=== PATIENT | male | born 1965 | race Caucasian/White ===

== ENCOUNTER 2022-08-13 10:13 | Emergency (ER) | payer OTHER ==
[2022-08-13] MEDS ORDERED: Sodium Chloride 0.9% 1,000 ML IV ONE (10:28)
[2022-08-13] MEDS ORDERED: Adenosine 6 MG/2 ML SDV ONE (10:32)
[2022-08-13 10:38] LABS: BASOPHILS PERCENT AUTO 0.2 % (0.0-1.0); EOSINOPHILS PERCENT AUTO 0.4 % (1.0-3.0); HEMATOCRIT 44.2 % (40.0-54.0); HEMOGLOBIN 15.3 g/dL (14.0-18.0); LYMPHOCYTES PERCENT AUTO 21.3 % (20.5-50.1); MEAN CORPUSCULAR HEMOGLOBIN 33.4 pg (27.0-34.0); MEAN CORPUSCULAR HGB CONC 34.6 g/dL (33.0-35.0); MEAN CORPUSCULAR VOLUME 96.5 fL (80-100); MONOCYTES PERCENT AUTO 7.6 % (2-8); NEUTROPHILS PERCENT AUTO 70.5 % (42.2-75.2); PLATELET COUNT,PLT 194 10^3/uL (150-450); RED BLOOD CELL COUNT 4.58 10^6/uL (4.6-6.2); WHITE BLOOD CELL COUNT,WBC 10.9 10^3/uL (5.0-10.0)
[2022-08-13] MEDS ORDERED: fentaNYL 100 MCG/2 ML SDV ONE (10:38)
[2022-08-13] MEDS ORDERED: Aspirin 81 MG Tab.Chew PO ONE (10:56)
[2022-08-13 11:00] LABS: INR 1.1 (0.9-1.2); PROTHROMBIN TIME 10.9 SEC (9.0-12.0); PTT,PARTIAL THROMBOPLSTIN TIME 24.2 SEC (22.0-34.0)
[2022-08-13 11:01] LABS: B-TYPE NATRIURETIC PEPTIDE,BNP 966 pg/ml (0-100)
[2022-08-13 11:08] LABS: LACTIC ACID 4.8 mmol/L (0.4-2.0)
[2022-08-13] MEDS ORDERED: Sodium Chloride 0.9% 10 ML Syringe FLUSH STA (11:08)
[2022-08-13 11:09] LABS: ALANINE AMINOTRANSFERASE,ALT 109 U/L (16-63); ALBUMIN 3.7 g/dL (3.4-5.0); ALKALINE PHOSPHATASE 88 U/L (46-116); ANION GAP 19.2 mEq/L (7-13); ASPARTATE AMNIOTRANSFERASE,AST 159 U/L (15-37); BILIRUBIN TOTAL 1.9 mg/dL (0.2-1.0); BLOOD UREA NITROGEN,BUN 23 mg/dL (7-18); BUN/CREATININE RATIO 9.7 (No establ ref range); CALCIUM 9.1 mg/dL (8.5-10.1); CARBON DIOXIDE,CO2 21 mmol/L (21-32); CHLORIDE,CL 98 mmol/L (98-107); CREATININE 2.37 mg/dL (0.70-1.30); EST CRCL DRUG DOSING (CG) 35.22 mL/min; GLUCOSE RANDOM 245 mg/dL (70-99); MAGNESIUM 1.7 mg/dL (1.8-2.4); POTASSIUM,K 4.2 mmol/L (3.5-5.1); PROTEIN TOTAL,TP 7.4 g/dL (6.4-8.2); SODIUM,NA 134 mmol/L (136-145); TSH ULTRASENSITIVE 6.13 uIU/mL (0.36-3.74)
[2022-08-13 11:11] LABS: ESTIMATED GFR 32 mL/min (>=60); ETHANOL BLOOD MEDICAL < 3 mg/dL (0)
[2022-08-13] MEDS ORDERED: Heparin Sodium 5,000 Units/ML Vial IVPUSH ONE (11:11)
[2022-08-13] MEDS ORDERED: Heparin Sodium/0.45% NaCl 25,000 UNITS/500 ML BAG IV SCH (11:15)
[2022-08-13] MEDS ORDERED: Amiodarone 150 MG/3 ML SDV IVPUSH ONE (11:28)
[2022-08-13] MEDS ORDERED: Adenosine 6 MG/2 ML SDV IVPUSH ONE (11:28)
[2022-08-13] MEDS ORDERED: fentaNYL 100 MCG/2 ML SDV IVPUSH ONE (11:29)
== END 2022-08-13 11:39 ==
LOC: DL.ED 10:13
DX: I21.4 Non-ST elevation (NSTEMI) myocardial infarction (principal); I47.20 Ventricular tachycardia, unspecified; J81.1 Chronic pulmonary edema; N17.9 Acute kidney failure, unspecified; R73.9 Hyperglycemia, unspecified; E87.1 Hypo-osmolality and hyponatremia; E83.42 Hypomagnesemia; R94.6 Abnormal results of thyroid function studies; E80.7 Disorder of bilirubin metabolism, unspecified
CPT/HCPCS: 36415; 71045; 80053; 80307; 83605; 83735; 83880; 84443; 84484; 85025; 85610; 85730; 93005; 93010; 96365; 96366; 96375; 99285; 99285-25; A9270-GY; J0153; J0282; J1644; J3010; J3490; J7030